=== PATIENT | female | born 1985 | race Caucasian/White ===

== ENCOUNTER 2018-02-02 01:36 | Emergency (ER) | payer SELFPAY ==
[2018-02-02 01:40] VITALS: BP 91/72
--- NOTE | 2018-02-02 01:50 | ER Report ---
History and Physical Time Seen By MD: 01:49 Hx. of Stated Complaint: PATIENT STATES SHE HAS A BROKEN TOOTH LEFT BOTTO, SHE STARTED HAVING PAIN IN TOOTH, ALL ALONG JAW AND NECK.OTC MEDS NOT HELPING. HPI/ROS CHIEF COMPLAINT: dental fracture HISTORY OF PRESENT ILLNESS: Patient is a 32-year-old female here with complaints of left lower molar fracture for the past week. Patient reports taking topical analgesia as well as NSAIDs without significant relief of symptoms. She is in the process of establishing a dentist. Patient reports worsening pain over the course. Denies fevers, chills, chest pain, dysphagia, odynophagia. REVIEW OF SYSTEMS: Constitutional: No fever, no chills. Eyes: No discharge. ENT: No sore throat, + left lower dental pain Skin: No rashes. Neurological: + headache, + mouth pain Allergies: Coded Allergies: ketorolac (Verified Allergy, Severe, SEIZURES, 02/02/18) cyclobenzaprine (Verified Allergy, Intermediate, SEIZURES, 02/02/18) Home Meds Active Scripts Tramadol Hcl (TRAMADOL HCL) 50 Mg Tablet, 50 MG PO Q6H Y for PAIN, #12 TAB 0 Refills Prov:RIVERA CABRERA DO 02/02/18 Penicillin V Potassium 500 Mg Tab (PENICILLIN V POTASSIUM 500 MG TAB) 500 Mg Tablet, 500 MG PO QID for 7 Days, #28 TAB Prov:RIVERA CABRERA DO 02/02/18 Constitutional Vital Sign - Last 24 Hours 02/02/18 01:40 Temp 98.1 Pulse 112 Resp 16 B/P (MAP) 91/72 Pulse Ox 98 O2 Delivery Room Air Physical Exam General Appearance: The patient is alert, has no immediate need for airway protection and no signs of toxicity. Moderate distress secondary to pain Eyes: Pupils equal and round no pallor or injection. ENT, Mouth: Mucous membranes are moist, + tooth fracture of the left lower molar Neurological: No focal neurological deficits Skin: Warm and dry, no rashes. Musculoskeletal: Neck is supple non tender. DIFFERENTIAL DIAGNOSIS: After history and physical exam differential diagnosis was considered for dental fracture or dental Kayleigh, dental abscess, jaw infection Medical Decision Making ED Course/Re-evaluation ED Course Patient is a 32-year-old female here with complaints of left lower molar pain and dental fracture. Fracture to place approximately one week ago and she reports worsening pain. Patient is afebrile, hemodynamically stable at time of evaluation. She was given penicillin for antimicrobial coverage. I performed an inferior alveolar dental block and then The fractured tooth with calcium hydroxide paste. Patient was sent home with a prescription for penicillin and tramadol. Patient has follow-up arranged at [facility]. Patient agreed to return promptly if she develops worsening pain, difficulty swallowing , blurred vision, worsening headache, nausea, vomiting. Decision to Disposition Date: Feb 02, 2018 Decision to Disposition Time: 02:23 Depart Departure Latest Vital Signs Vital Signs Date Time Temp Pulse Resp B/P (MAP) Pulse Ox O2 Delivery O2 Flow Rate FiO2 02/02/18 01:40 98.1 112 16 91/72 98 Room Air Impression: Primary Impression: Tooth fracture Condition: Improved Disposition: HOME OR SELF-CARE New Scripts Tramadol Hcl (TRAMADOL HCL) 50 Mg Tablet 50 MG PO Q6H Y for PAIN, #12 TAB 0 Refills Prov: RIVERA CABRERA DO 02/02/18 Penicillin V Potassium 500 Mg Tab (PENICILLIN V POTASSIUM 500 MG TAB) 500 Mg Tablet 500 MG PO QID for 7 Days, #28 TAB Prov: RIVERA CABRERA DO 02/02/18 Patient Instructions: Dental Abscess (ED), Penicillin V (By mouth), Tramadol ( By mouth) Additional Instructions: Please take one tablet of penicillin 4 times a day for 7 days. You may take 1 tablet of tramadol every 6-8 hours as needed for pain control. Please return promptly if you develop worsening pain, fevers, difficulty swallowing, headaches , blurred vision. RIVERA CABRERA DO Feb 02, 2018 01:50
[2018-02-02] MEDS ORDERED: PENICILLIN VK 250 MG TAB PO SCH (02:05)
[2018-02-02] MEDS: KETOROLAC 60 MG/2 ML VIAL IM ONE ×2 (02:12→02:15)
[2018-02-02] MEDS ORDERED: PENI-24 PO (02:25)
[2018-02-02] MEDS ORDERED: TRAM-420 PO (02:25)
[2018-02-02] MEDS ORDERED: traMADol 50 MG TAB TH 2 TAB/BOTTLE PO ONE (02:30)
== END 2018-02-02 02:36 | disposition home or self-care (01) ==
LOC: ER 01:50
DX: S02.5XXA Fracture of tooth (traumatic), initial encounter for closed fracture (principal)
CPT/HCPCS: 64400; 99283; C9399; J1885